=== PATIENT | female | born 1995 | race Caucasian/White ===

== ENCOUNTER 2016-12-11 14:39 | Emergency (ER) | payer MEDICAID ==
--- NOTE | 2016-12-11 18:21 | ERNOTE ---
ER Female HPI Date of Service: 12/11/16 Stated Complaint: BLEEDING, Presenting Symptoms: vaginal bleeding Time Seen by Provider: 12/11/16 17:51 Source: patient Exam Limitations: no limitations Immunizations: IMMUNIZATION HX Immunizations Up to Date Yes History of Influenza Vaccine Yes Hx Pneumococcal Vaccination No Allergies/Adverse Reactions: Allergies codeine [Codeine] Adverse Reaction (Mild, Verified 08/12/16 10:18) Vomiting Home Medications: HOME MEDICATIONS Ciprofloxacin HCl [Cipro] 500 mg PO BID #14 tablet 08/15/16 [Last Taken Unknown] Hydrocodone/Acetaminophen [[place] 5-325 Tablet] 1 each PO QID PRN #10 tablet [Last Taken Unknown] - History of Present Illness Narrative: Pt. comes in with c/o LLq and suprapubic pain that started yesterday Pt. states that at 1400 today she developed bleeding and soaked a pad in the first hour but is not spotting and not bleeding heavily at thsi time. Pt. LMP was Nov 05 and by dates that would make her 6 weeks. Pt. denies any constipation, diarrhea, SOB, CP, recent illness or injury. Pt. denies any alleviating factors , aggravating factors, or prehospital treatment. Review of Systems - Review of Systems Constitutional: Present: no symptoms reported. Absent: recent illness, fever, chills, weakness, fatigue, malaise EYE: Present: no symptoms reported ENT: Present: no symptoms reported Respiratory: Present: no symptoms reported. Absent: shortness of breath, cough , wheezing Cardiology: Present: no symptoms reported. Absent: chest pain, palpitations, edema Gastrointestinal/Abdominal: Present: abdominal pain. Absent: nausea, vomiting, diarrhea, constipation Genitourinary: Present: pain - suprapubic L LQ, discharge - bloody Musculoskeletal: Present: no symptoms reported. Absent: back pain, neck pain, joint pain Skin: Present: no symptoms reported Neurological: Present: no symptoms reported. Absent: headache, dizziness/light- headedness, numbness, tingling All Other Systems: All systems neg except as marked - Patient's Past Medical History Patient History - Medical: Anxiety, Depression Patient History - Cardiac/Respiratory: Pneumonia - RSV Patient History - Cancer: No Hx of Cancer Patient History - Surgical Procedures: D & C, Other - Family History Mother Family History - Medical: No pertinent hx Family History - Cardiac/Respiratory: No pertinent hx Father Family History - Medical: Diabetes Type 2 Family History - Cardiac/Respiratory: No pertinent hx - Social History Living Situations: home Alcohol Use: none Drug Use: none Physical Exam - Physical Exam General Appearance: Present: wd/wn, alert, no apparent distress Eye Exam: Normal inspection: bilateral, PERRL: bilateral, EOMI: bilateral Neck: Present: normal inspection Respiratory: Present: no respiratory distress, normal breath sounds, no accessory muscle use, chest nontender, lungs clear Cardiovascular/Chest: Present: regular rate, rhythm, no murmur, normal peripheral pulses Gastrointestinal/Abdominal: Present: normal bowel sounds, nondistended, soft, no organomegaly, tenderness - LLQ suprapubic. Absent: McBurney sign, Obturator sign, Ling sign, Psoas sign Back Exam: Present: normal inspection, normal range of motion, no CVA tenderness , no vertebral tenderness. Absent: decreased range of motion, muscle spasm Extremity Exam: Present: normal inspection Neurological Exam: Present: alert, oriented, normal mood/affect, no motor/ sensory deficits Skin Exam: Present: normal color, warm/dry. Absent: pallor, skin rash ED Progress - Date and Time Seen: Date and Time: 12/11/16 20:[address] Avendano and will have pt follow up on Tuesday for repeat HCG and office follow up - Vital Signs Patient's Vital Signs:: I have reviewed the patient's vital signs. Vital Signs: Vital Signs 12/11/16 16:41 Temperature 35.5 C L Pulse Rate 85 Respiratory 14 Rate Blood Pressure 127/77 O2 Sat by Pulse 100 Oximetry - CT/Ultrasound CT/Ultrasound Narrative: US with no evidence of IUP. R ovarian cyst 1.5 cm - Progress/Reassessment Chief Complaint: OB Screening Departure Clinical Impression: Vaginal bleeding before 22 weeks gestation, Threatened in early - Departure Disposition: Home self-care Condition: Good Instructions: Threatened Miscarriage, [id number], Pelvic Rest Additional Instructions: Please follow up for repeat labs and office follow up on Tuesday call OBgyn for appointment. Referrals: Rosanna Avendano MD [Staff Physician] -
[2016-12-11 19:40] LABS: Hematocrit 41.6 % (37.0-47.0); Hemoglobin 14.1 gm/dL (12.5-16.0); Mean Cell Volume 87.6 fl (78-100); Mean Corpuscular Hemoglobin 29.7 pg (27-31); Mean Corpuscular Hgb Conc 33.9 g/dl (32-36); Mean Platelet Volume 9.7 fl (6.0-9.5); Neutrophil # 8.1 K/mm3 (1.3-6.0); Platelet Count 344 K/mm3 (150-450); Red Blood Count 4.75 M/mm3 (4.2-5.4); Red Cell Distribution Width 11.9 % (11.5-14.0); White Blood Count 10.8 K/mm3 (4.0-10.5)
[2016-12-11 19:51] VITALS: BP 106/65
== END 2016-12-11 20:59 | disposition home or self-care (01) ==
LOC: ER 14:39
DX: O20.9 Hemorrhage in early pregnancy, unspecified (principal); O20.0 Threatened abortion; Z3A.00 Weeks of gestation of pregnancy not specified

== ENCOUNTER 2017-03-28 00:46 | Emergency (ER) | payer MEDICAID ==
--- NOTE | 2017-03-28 01:09 | ERNOTE ---
ER Female HPI Stated Complaint: BACK PAIN CRAMPS PREG Time Seen by Provider: 03/28/17 00:50 Source: patient Exam Limitations: no limitations Immunizations: IMMUNIZATION HX Immunizations Up to Date Yes History of Influenza Vaccine No Hx Pneumococcal Vaccination No Allergies/Adverse Reactions: Allergies codeine [Codeine] Adverse Reaction (Mild, Verified 03/28/17 00:54) Vomiting Home Medications: HOME MEDICATIONS Vit#96/Ferrous Fum/FA [ S] 1 tab PO DAILY 03/28/17 [Last Taken Unknown] - History of Present Illness Narrative: LMP 01/27/17. Pt is . She had one episode of vaginal bleeding yesterday am at 0900 , none today. She is SAB3. She currently complains of pelvic pain and cramping Review of Systems - Review of Systems Constitutional: Present: no symptoms reported EYE: Present: no symptoms reported ENT: Present: no symptoms reported Respiratory: Present: no symptoms reported Cardiology: Present: no symptoms reported Gastrointestinal/Abdominal: Present: See HPI Genitourinary: Present: See HPI Musculoskeletal: Present: no symptoms reported Skin: Present: no symptoms reported - Patient's Past Medical History Patient History - Medical: Anxiety, Depression Patient History - Cardiac/Respiratory: No pertinent hx Patient History - Cancer: No Hx of Cancer Patient History - Surgical Procedures: D & C, Other Patient History - Other: None LMP (Calendar): 06/09/16 - Family History Mother Family History - Medical: No pertinent hx Family History - Cardiac/Respiratory: No pertinent hx Father Family History - Medical: Diabetes Type 2 Family History - Cardiac/Respiratory: No pertinent hx - Social History Living Situations: home Abuse History: No History of abuse Psych History: Hx of Anxiety, Hx of Depression Smoking Status: Current every day smoker Patient requests Smoking Cessation Consult: No Initiate information on Smoking Cessation: No Alcohol Use: none Drug Use: none - Immunizations Immunizations Up to Date: Yes Hx Pneumococcal Vaccination: No History of Influenza Vaccine: No Physical Exam - Physical Exam General Appearance: Present: wd/wn, alert, no apparent distress Respiratory: Present: no respiratory distress, normal breath sounds, no accessory muscle use, chest nontender, lungs clear Cardiovascular/Chest: Present: regular rate, rhythm, no murmur, normal peripheral pulses Gastrointestinal/Abdominal: Present: normal bowel sounds Pelvic Exam: Present: other - There is no active bleeding. Cervix is closed, no blood in the vault. no CMT. No discharge or blood or tissue in vault ED Progress - Results and Orders Patient's Lab Results:: I have reviewed the patient's lab results. - Vital Signs Patient's Vital Signs:: I have reviewed the patient's vital signs. Vital Signs: Vital Signs 03/28/17 00:50 Temperature 36.8 C Pulse Rate 133 H Respiratory 18 Rate Blood Pressure 133/77 O2 Sat by Pulse 100 Oximetry - CT/Ultrasound CT/Ultrasound Narrative: U/S reveals intrauterine preg - Progress/Reassessment Chief Complaint: Genitourinary Problem Plan - Plan Plan: pt has an intrauterine and needs to be on pelvic/rest as she was bleeding yesterday. She is not a candidate for Rhogam and is to follow up with her OB in 24 hours. She is to come back for increased bleeding. She is NOT bleeding right now and her vitals are stable Departure Clinical Impression: Threatened - Departure Disposition: Home self-care Condition: Good Instructions: Vaginal Bleeding During , First Trimester Additional Instructions: Please exercise pelvic rest and please follow up with your COO in 24 hours
[2017-03-28 01:16] LABS: Hematocrit 37.6 % (37.0-47.0); Hemoglobin 13.3 gm/dL (12.5-16.0); Mean Cell Volume 86.2 fl (78-100); Mean Corpuscular Hemoglobin 30.5 pg (27-31); Mean Corpuscular Hgb Conc 35.4 g/dl (32-36); Mean Platelet Volume 9.3 fl (6.0-9.5); Neutrophil # 6.1 K/mm3 (1.3-6.0); Neutrophil % 70.7 % (42-75.0); Platelet Count 252 K/mm3 (150-450); Red Blood Count 4.36 M/mm3 (4.2-5.4); Red Cell Distribution Width 11.9 % (11.5-14.0); White Blood Count 8.6 K/mm3 (4.0-10.5)
[2017-03-28 01:32] LABS: Urine Bilirubin Negative (NEGATIVE); Urine Ketone 5 mg/dL (NEGATIVE); Urine Nitrite Negative (NEGATIVE); Urine Protein Negative (NEGATIVE); Urine Specific Gravity >=1.030 SP.GR. (1.005-1.010); Urine Urobilinogen Normal (NORMAL)
[2017-03-28 01:35] LABS: Urine Appearance Clear; Urine Bacteria TRACE; Urine Blood 10 /ul (NEGATIVE); Urine Color Yellow; Urine Mucus Few - 1+; Urine RBC 0-5 /hpf (0-5); Urine WBC None Seen /hpf (0-5)
--- OUTSIDE RECORDS SUMMARY | 2017-03-28 02:02 | XMS REPORT | Continuity of Care Document ---
:1995 Author Organization [facility] ([facility]) Address [address] [place] [address] Phone [phone] Care Team Providers Name Role Phone Germán López Primary Care Provider [phone] Source Comments This disclosure is being made pursuant to the Care Everywhere program, applicable federal and state laws, and may not contain all informaitonavailable regarding this patient.[facility] ([facility]) Active Allergies and Adverse Reactions Allergen Noted Date Severity Reactions Comments Codeine 09/29/2012 Nausea & Vomiting Current Medications No known medications Active Problems Problem Noted Date Dysmenorrhea 10/01/2012 Pelvic pain 10/01/2012 Social History Tobacco Use Types Packs/Day Years Used Date Current Every Day Smoker 0.5 Last Filed Vital Signs Vital Sign Reading Time Taken Blood Pressure 119/55 09/29/2012 10:58 AM ASTRONOMY DEPARTMENT CHAIR Pulse 84 09/29/2012 10:58 AM ASTRONOMY DEPARTMENT CHAIR Temperature 36.1 C (96.98 F) 12/07/2006 8:18 AM ASTRONOMY DEPARTMENT CHAIR Respiratory Rate - - Height 1.676 m (5' 6") 09/29/2012 10:57 AM ASTRONOMY DEPARTMENT CHAIR Weight 72.8 kg (160 lb 7.9 oz) 09/29/2012 10:57 AM ASTRONOMY DEPARTMENT CHAIR Body Mass Index 25.92 09/29/2012 10:57 AM ASTRONOMY DEPARTMENT CHAIR Oxygen Saturation - - Plan of Care Health Maintenance Due Date Last Done Comments Hepatitis B Vaccine (1 of 3 - Primary Series) 1993 HPV Vaccine (1 of 3 - Female/Unknown 3 Dose Series) 2004 Tdap Vaccine 2004 Cervical Cancer Screening 2011 Lipid Disorder Screening 2011 MMR Vaccine 2011 Td Vaccine 2011 Varicella Vaccine (1 of 2 - Adult - No Evidence of 2011 Immunity) Pneumococcal Vaccine (1 of 1 - PPSV23) 2012 Influenza Vaccine: Seasonal (#1) 06/21/2016 Results from Last 3 Months Not on file
[2017-03-28] MEDS ORDERED: ACETAMINOPHEN 325 MG TABLET PO ONE (04:07)
[2017-03-28] MEDS ORDERED: ACETAMINOPHEN 325 MG TABLET ONE (04:07)
[2017-03-28] MEDS ORDERED: NITROFURANTOIN/NITROFURAN MAC 100 MG CAPSULE ONE (04:12)
[2017-03-28 04:21] VITALS: BP 108/64
[2017-03-28] MEDS ORDERED: NITROFURANTOIN/NITROFURAN MAC 100 MG CAPSULE PO SCH (09:00)
== END 2017-03-28 04:18 | disposition home or self-care (01) ==
LOC: ER 00:46
PROC: 0T9B3ZZ Drainage of Bladder, Percutaneous Approach (ICD-10-PCS; principal; 2017-03-28)
DX: O20.0 Threatened abortion (principal); Z3A.00 Weeks of gestation of pregnancy not specified; Z33.1 Pregnant state, incidental; Z72.0 Tobacco use; N39.0 Urinary tract infection, site not specified

== ENCOUNTER 2017-10-10 03:08 | Inpatient (IN) | payer MEDICAID ==
[2017-10-10] MEDS: RINGER'S SOLUTION,LACTATED 1,000 ML IV PRN ×2 (03:41→11:19)
[2017-10-10] MEDS ORDERED: BETAMETHASONE ACETATE,SOD PHOS 6 MG/ML VIAL IM SCH (03:45)
[2017-10-10] MEDS: PENICILLIN G POTASSIUM 5 MILLIONUNT in DEXTROSE 5 % IN WATER 100 ML IV ONE ×4 (03:56→04:01)
[2017-10-10 04:32] LABS: Urine Bilirubin Negative (NEGATIVE); Urine Blood 50 /ul (NEGATIVE); Urine Ketone Negative (NEGATIVE); Urine Nitrite Negative (NEGATIVE); Urine Protein Negative (NEGATIVE); Urine Urobilinogen Normal (NORMAL)
[2017-10-10] MEDS ORDERED: BUPIVACAINE HCL/0.9 % NACL/PF 250 ML EP PRN (04:36)
[2017-10-10] MEDS ORDERED: ONDANSETRON HCL/PF 2 MG/ML VIAL IV PRN (04:36)
[2017-10-10] MEDS ORDERED: NALOXONE HCL 1 MG/1 ML SYRG IV PRN (04:36)
[2017-10-10 04:41] LABS: Cocaine Ur Negative (NEGATIVE); Urine Appearance Clear; Urine Bacteria TRACE; Urine Barbiturate Negative (NEGATIVE); Urine Benzodiazepines Negative (NEGATIVE); Urine Color Yellow; Urine Opiates Negative (NEGATIVE); Urine PCP Negative (NEGATIVE); Urine RBC 0-5 /hpf (0-5); Urine THC Negative (NEGATIVE); Urine WBC 0-5 /hpf (0-5)
[2017-10-10] MEDS ORDERED: BUPIVACAINE HCL/PF 30 ML VIAL EP SCH (04:45)
[2017-10-10] MEDS: DEXTROSE 5%-LACTATED RINGERS 1,000 ML IV PRN ×2 (04:50→07:38)
--- NOTE | 2017-10-10 05:19 | OR ---
Anesthesia Procedure Note - Anesthesia Procedure Note Date of Service: 10/10/17 Narrative: Vital Signs - Last Taken Temp 36.7 C 10/10/17 04:56 Pulse 99 10/10/17 04:56 Resp 18 10/10/17 04:56 BP 119/69 10/10/17 04:56 Pulse Ox 100 10/10/17 04:56 10/10/17 05:17 ANESTHESIA PROCEDURE NOTE Date of Procedure: 10/10/2017. Time of procedure: 0455. Performed by: Sathya Sanchez CRNA Sales Team Leader: None. Preprocedure diagnosis: Active labor. Post procedure diagnosis: Same. Procedure: Insertion of labor epidural. Indications: The patient is a 21 -year-old female in active labor requesting labor epidural for pain management. Findings: See below. Details of the procedure: The patient was placed in a sitting position. DuraPrep as well as Betadine swabs X3 was applied to the patient's back. Patient was then draped in a sterile fashion. Lidocaine 1% was infiltrated to the skin and subcutaneous tissues at the level of the L3-4 interspace. The epidural space was identified using a 18-gauge Tuohy needle with loss-of- resistance technique. Epidural catheter was inserted to a depth of 9 centimeters at skin. Negative test dose was elicited using 3 mL of 1.5% preservative-free lidocaine plus epinephrine 1 200,000. The epidural catheter was then taped and secured in place. A loading dose of 8 mL of 0.25% preservative-free bupivacaine was administered to the epidural catheter after negative aspiration for blood and CSF. EBL: Minimal. Fluids: N/A. Specimen: N/A. Post procedure condition: The patient tolerated the procedure well. No complications were noted. Thank you for this consultation. Sathya Sanchez CRNA
[2017-10-10] MEDS ORDERED: OXYTOCIN/DEXTROSE 5%-WATER 30 UNITS/500 ML BAG IV ONE ×2 (06:44→11:51)
[2017-10-10] MEDS: PENICILLIN G POTASSIUM 2.5 MILLIONUNT in DEXTROSE 5 % IN WATER 100 ML IV SCH ×4 (07:04→11:00)
[2017-10-10] MEDS ORDERED: BENZOCAINE/MENTHOL 81 SPRAY CAN TP PRN (11:51)
[2017-10-10] MEDS ORDERED: GLYCERIN/WITCH HAZEL LEAF 40 APPL BOX TP PRN (11:51)
[2017-10-10] MEDS ORDERED: BISACODYL 10 MG SUPP.RECT RC PRN (11:51)
[2017-10-10] MEDS ORDERED: oxyCODONE HCL/ACETAMINOPHEN 1 TAB TABLET PO PRN ×2 (11:51)
[2017-10-10] MEDS ORDERED: DOCUSATE SODIUM 100 MG CAPSULE PO SCH (11:51)
[2017-10-10] MEDS ORDERED: SENNOSIDES 8.6 MG TABLET PO PRN (11:51)
[2017-10-10] MEDS ORDERED: IBUPROFEN 800 MG TABLET PO PRN (11:51)
[2017-10-10] MEDS ORDERED: HYDROCORTISONE 30 APPL TUBE TP PRN (11:51)
--- NOTE | 2017-10-10 12:05 | OR ---
Operative Report - Dictated Report Narrative: Spontaneous vaginal delivery of viable male at 1135 on 10/10/17 with APGARs 8,8 weighing 2348 grams in VIVIANA position with tight nuchal cord x 1 reduced on perineum. Cord clamping delayed approximately 1 minute Placenta delivered complete, intact, with three vessel cord Estimated blood loss: less than 50 ml Lacerations: None History for MU Definition: * The number of deliveries resulting in a live the patient experienced prior to current hospitalization * The previous delivery of live twins or any live multiple gestation is considered one live event. *If primagravida or nulliparous is documented select zero for the number of previous live births. Live Events: 1
[2017-10-10] MEDS ORDERED: PRENATAL VITS96/IRON FUM/FOLIC 1 TAB TABLET PO SCH (12:15)
[2017-10-10 19:19] VITALS: BP 138/82
== END 2017-10-10 19:36 | disposition left against medical advice (07) | DRG 775 ==
LOC: OBCLINIC 03:08 → OBSVTOIN 03:31 → OB 03:31
PROVIDERS: ADMIT Obstetrics & Gynecology; ATTEND Obstetrics & Gynecology
PROC: 10E0XZZ Delivery of Products of Conception, External Approach (ICD-10-PCS; principal; 2017-10-10)
PROC: 4A1HXCZ Monitoring of Products of Conception, Cardiac Rate, External Approach (ICD-10-PCS; 2017-10-10)
PROC: 00HU33Z Insertion of Infusion Device into Spinal Canal, Percutaneous Approach (ICD-10-PCS; 2017-10-10)
DX: O60.14X0 Preterm labor third trimester with preterm delivery third trimester, not applicable or unspecified (principal); O99.02 Anemia complicating childbirth; D50.8 Other iron deficiency anemias; O69.1XX0 Labor and delivery complicated by cord around neck, with compression, not applicable or unspecified; O99.334 Smoking (tobacco) complicating childbirth; J45.909 Unspecified asthma, uncomplicated; R76.8 Other specified abnormal immunological findings in serum; Z3A.35 35 weeks gestation of pregnancy; Z37.0 Single live birth
CPT/HCPCS: 59025; 80307; 81001; 87081; 88307; J2405